=== PATIENT | male | born 1935 | race Caucasian/White ===

== ENCOUNTER → 2017-07-23 | Outpatient (CLI) | payer MEDICARE, BC ==
[~2017-07-23] MED LIST: COZA100T PO; METO50TA PO; MOME17I; OMPR20CCR PO; RIVA20 PO; SERT-132 PO; VENTAER INH; ZOLP10TA3 PO; [UNRECOGNIZED DRUG - CODE] OP
--- NOTE | 2017-07-28 11:33 | RSPPFT ---
DATE OF PROCEDURE: 07/23/17 COMMENTS: VOLUMES DYNAMIC: FVC and FEV1 normal. STATIC: FRC, RV and TLC normal. FLOWS: FEV1% normal; FEF 25-75 mildly reduced. DIFFUSION: Normal. FLOW VOLUME LOOP: Terminal airflow obstruction. IMPRESSION: Mild terminal airflow obstruction with no reduction in diffusion and no significant improvement post-bronchodilator.
== END ==
LOC: HRSP 08:52
PROVIDERS: ATTEND Internal Medicine
DX: J45.909 Unspecified asthma, uncomplicated (principal)
CPT/HCPCS: 94060; 94618; 94726; 94729; 95012